=== PATIENT | female | born 1965 | race Caucasian/White ===

== ENCOUNTER 2019-02-03 23:00 | Emergency (ER) | payer OTHER ==
[~2019-02-03] VITALS: Ht 165.1 cm; Wt 78.5 kg
[~2019-02-03 23:00] MED LIST: ATOR20TA PO; CLOP75TA15 PO; GABA-532 PO; INSU100V7 SQ; OMEG1CAP18 PO
--- NOTE | 2019-02-03 23:10 | NUR ---
REQUESTING INSULIN DOSE AND REQUESTING NEW INSULIN RX. NEWLY DX'D DM BLOOD SUGAR IS CURRENTLY 268 AOTIMES 4 AND AMBULATORY
[2019-02-03] MEDS ORDERED: INSULIN REGULAR, HUMAN 100 UNIT/ML 10 ML VIAL ONE (23:53)
[2019-02-04] MEDS ORDERED: INSULIN REGULAR, HUMAN 100 UNIT/ML 10 ML VIAL SQ ONE
[2019-02-04 00:10] VITALS: BP 156/90
== END 2019-02-04 00:10 | disposition home or self-care (01) ==
LOC: ER 23:03
DX: Z76.0 Encounter for issue of repeat prescription (principal); E11.9 Type 2 diabetes mellitus without complications; F17.200 Nicotine dependence, unspecified, uncomplicated; Z86.73 Personal history of transient ischemic attack (TIA), and cerebral infarction without residual deficits; Z98.890 Other specified postprocedural states; Z90.89 Acquired absence of other organs; Z79.4 Long term (current) use of insulin; Z79.899 Other long term (current) drug therapy
CPT/HCPCS: 82962; 96372; 99283; J1815